=== PATIENT | female | born 1990 | race Caucasian/White ===

== ENCOUNTER 2017-02-08 13:50 | Emergency (ER) | payer SELFPAY ==
--- NOTE | ~2017-02-08 | EKG ---
PATIENT: TEJA RUELAS UNIT #: [id number] Ventricular Rate: 95 BPM Atrial Rate: 95 BPM P-R Interval: 152 ms QRS Duration: 86 ms Q-T Interval: 352 ms QTC Calculation(Bezet): 442 ms P [place]: 36 degrees Calculated R [place]: 46 degrees Calculated T [place]: 23 degrees Diagnosis Line: Normal sinus rhythm Diagnosis Line: Poor R wave progression questionable lead position Diagnosis Line: or body habitus Diagnosis Line: Otherwise normal ECG Diagnosis Line: When compared with ECG of 07-JAN-2015 19:05, Diagnosis Line: No significant change was found Diagnosis Line: Confirmed by NARINDER STEARNS MD ([id number]) on 02/10/2017 Diagnosis Line: 5:47:34 PM INTERPRETING MD: JINNY BUNCH
--- NOTE | ~2017-02-08 | CR72 ---
[facility]. [facility] A Service of [facility] & [facility] RADIOLOGY TEXT RESULTS PATIENT: TEJA RUELAS LOCATION: SED : 89 UNIT #: [id number] AGE: [address]: Pillo Lovett MD SEX: F ORDER DR: [id number] [place] [id number] E MR#: [id number] Acc #: [id number] NAME: TEJA RUELAS : 1990 SEX: F STUDY DATE/TIME: 02/08/2017 14:16 UNIT: SED ROOM: STUDY DESCRIPTION: CR Chest Single View Portable Attending Physician: Pillo Lovett M.D. Referring Physician: Pillo Lovett M.D. Ordering Physician: Pillo [id number] Charla Lovett Primary Care Physician: Primary Care Physician No MEDICAL IMAGING REPORT This report is preliminary unless electronic signature is present. EXAM Portable chest, 02/08/2017 HISTORY Chest pain for 3 weeks with shortness of breath beginning today. FINDINGS A single AP portable view of the chest shows both lungs to be clear. The heart is normal in size. The mediastinal contour is normal. No significant bone abnormalities are seen. IMPRESSION Normal portable chest. Dictated by... Carlos Marcial M.D. THIS IS AN ELECTRONICALLY VERIFIED REPORT Carlos Marcial M.D. at 02/09/2017 8:01 AM BEE/neli TD: 02/08/2017 20:41 JOB #: [id number] MEDICAL IMAGING REPORT Page 1 of 1
[~2017-02-08 13:50] MED LIST: ALBUTEROL17 GM INH; AMITRYPTYLINE PO; ANTIVERT PO; ANXIETY/DEPRESSION PO; BACTRIM DS TABL1 TA1 PO; CLEOCIN150 MG PO; DEPRESSION PILL; EC-NAPROSYN500 MG PO; FLEXERIL10 MG PO; IBUPROFEN800 MG PO; MOTRIN600 M2 PO; NO MEDICATIONS; PRED-PAK PO; PREDNISONE PO; PRILOSEC20 MG PO; SEROQUEL50 MG PO; TAMIFLU75 M1; VOLTAREN50 MG; VOLTAREN50 MG PO; VOLTAREN75 MG PO; ZITHROMAX PO
[2017-02-08 14:49] LABS: BASOPHIL# 0.1 X10e3 (0-0.3); BASOPHIL% 0.8 % (0-2.5); EOSINOPHIL% 0.4 % (0.0-7.0); HEMATOCRIT 41.2 % (35.0-45.0); HEMOGLOBIN 13.8 gm/dL (12.0-16.0); LYMPHOCYTE# 2.6 X10e3 (1.0-3.5); LYMPHOCYTE% 27.7 % (17.0-45.0); MEAN CELL VOLUME 87.7 FL (83-96); MEAN CORPUSCULAR HEMOGLOBIN 29.5 PG (28-34); MEAN CORPUSCULAR HGB CONC 33.6 g/dL (30-36); MEAN PLATELET VOLUME 8.7 FL (6.5-11.5); MONOCYTE# 0.6 X10e3 (0-1.0); NEUTROPHIL# 6.2 X10e3 (1.5-7.1); NEUTROPHIL% 65.1 % (40-75); PLATELET COUNT 260 X10e3 (140-420); RED CELL DISTRIBUTION WIDTH 12.9 % (11.0-15.5); WHITE BLOOD COUNT 9.5 X10e3 (4.0-10.5)
[2017-02-08 14:51] LABS: DIFF IND NO
[2017-02-08 14:59] LABS: INR 1.2; PROTHROMBIN TIME (PATIENT) 13.2 SECONDS (9.5-12.4)
[2017-02-08 15:04] LABS: POC - CKMB <1.0 ng/mL (0.0-7.9); POC - TROPONIN <0.05 ng/mL (<=0.05)
[2017-02-08 15:07] LABS: PARTIAL THROMBOPLASTIN TIME 34.7 SECONDS (25.6-38.1)
[2017-02-08 15:09] LABS: ALBUMIN SERUM 3.8 g/dL (3.5-5.0); BILIRUBIN, DIRECT 0.1 mg/dL (0.0-0.2); BILIRUBIN,INDIRECT 0.2 mg/dL (0.0-0.9); BILIRUBIN,TOTAL 0.3 mg/dL (0.2-2.0); BUN/CREATININE RATIO 18.57; CALCIUM SERUM 9.1 mg/dL (8.4-10.2); CREATININE SERUM 0.7 mg/dL (0.6-1.4); GLOM FILT RATE Estimated 120.4 mL/min (>60); POTASSIUM 3.6 mmol/L (3.5-5.1); PROTEIN TOTAL SERUM 7.3 g/dL (6.0-8.3)
== END 2017-02-08 16:03 | disposition home or self-care (01) ==
LOC: SED 13:50
PROVIDERS: Emergency Medicine
DX: R07.9 Chest pain, unspecified (principal); R06.02 Shortness of breath; F17.210 Nicotine dependence, cigarettes, uncomplicated; Z88.0 Allergy status to penicillin; Z91.040 Latex allergy status
CPT/HCPCS: 36415; 71010; 80048; 80076; 82553; 83880; 84484; 85025; 85379; 85610; 85730; 93005; 99284

== ENCOUNTER 2017-05-20 17:19 | Emergency (ER) | payer BC ==
[2017-06-15] MEDS ORDERED: NAPROSYN500 MG PO (18:57)
== END 2017-05-20 19:17 | disposition home or self-care (01) ==
LOC: SED 17:19
DX: H91.93 Unspecified hearing loss, bilateral (principal); Z88.0 Allergy status to penicillin; Z91.040 Latex allergy status
CPT/HCPCS: 99283